=== PATIENT | female | born 1950 | race Two or more races ===

== ENCOUNTER 2025-05-29 10:46 | Inpatient (IN) | payer MEDICARE, MEDICAID ==
[~2025-05-29] VITALS: Ht 157.5 cm; Wt 105.7 kg
[2025-05-29] MEDS ORDERED: FUROSEMIDE 40 MG/4 ML VIAL ONE (11:12)
[2025-05-29 11:22] LABS: PLATELET COUNT (AUTO) 338 K/uL (150-450); RED BLOOD CELL COUNT(AUTO) 4.13 MIL/uL (4.0-5.2); RED CELL DISTRIBUTION WIDTH 22.3 % (11.5-15.0); WHITE BLOOD COUNT (AUTO) 5.5 K/uL (4.3-11.0)
[2025-05-29] MEDS: FUROSEMIDE 40 MG/4 ML VIAL IV ONE (11:29)
[2025-05-29 11:31] LABS: CALCIUM, SERUM 9.1 mg/dL (8.5-10.1); CREATININE 1.0 mg/dL (0.6-1.3); SODIUM SERUM 140 mmol/L (136-145); UREA NITROGEN, BLOOD 19 mg/dL (7-18)
[2025-05-29 11:44] LABS: NT-PRO BNP 81 pg/mL (0-125)
[2025-05-29] MEDS ORDERED: EMPA10TA PO (13:23)
[2025-05-29] MEDS ORDERED: FURO40TA5 PO (13:23)
[2025-05-29] MEDS ORDERED: FOLI0.4T6 PO (13:23)
[2025-05-29] MEDS ORDERED: OXYC-133 PO (13:23)
[2025-05-29] MEDS ORDERED: CEPH-570 PO (13:23)
[2025-05-29] MEDS ORDERED: RIBO25TA PO (13:23)
[2025-05-29] MEDS ORDERED: ALPR2TAB7 PO (13:23)
[2025-05-29] MEDS ORDERED: POTA-88 PO (13:23)
[2025-05-29] MEDS ORDERED: CYAN100T44 PO (13:23)
[2025-05-29] MEDS ORDERED: ACETAMINOPHEN 325 MG TABLET PO PRN (13:30)
[2025-05-29] MEDS ORDERED: Z GUARD REMEDY 4 OZ OINT TP PRN (13:30)
[2025-05-29] MEDS ORDERED: ONDANSETRON HCL/PF 4 MG/2 ML VIAL IVP PRN (13:30)
[2025-05-29] MEDS ORDERED: MAG HYDROX/AL HYDROX/SIMETH 30 ML UDC PO PRN (13:30)
[2025-05-29] MEDS: ENOXAPARIN SODIUM 40 MG/0.4 ML DISP.SYRIN SQ SCH (13:30)
[2025-05-29] MEDS ORDERED: MAGNESIUM HYDROXIDE 30 ML UDC PO PRN (13:30)
[2025-05-29 15:53] VITALS: BP 130/72; TEMP 97.7; O2SAT 97
[2025-05-29 16:00] VITALS: BP 130/72; TEMP 97.7; O2SAT 97
[2025-05-29] MEDS ORDERED: FUROSEMIDE 20 MG/2 ML VIAL IV SCH (17:00)
[2025-05-29] MEDS: FUROSEMIDE 20 MG/2 ML VIAL IV SCH (17:38)
[2025-05-29 20:00] VITALS: BP 133/81; TEMP 97.7; O2SAT 98
[2025-05-30] VITALS: BP 96/73; TEMP 98.2; O2SAT 97
[2025-05-30 04:00] VITALS: BP 130/68; TEMP 98.2; O2SAT 97
[2025-05-30 06:47] LABS: PLATELET COUNT (AUTO) 332 K/uL (150-450); RED BLOOD CELL COUNT(AUTO) 4.07 MIL/uL (4.0-5.2); RED CELL DISTRIBUTION WIDTH 21.7 % (11.5-15.0); WHITE BLOOD COUNT (AUTO) 5.7 K/uL (4.3-11.0)
[2025-05-30 07:00] LABS: ASPARTATE AMINOTRANSFERASE 21.0 U/L (15-37); CALCIUM, SERUM 8.7 mg/dL (8.5-10.1); CREATININE 0.7 mg/dL (0.6-1.3); LDL 66.0 mg/dL (0-99); PHOSPHORUS 4.4 mg/dL (2.5-4.9); SODIUM SERUM 142.0 mmol/L (136-145); TOTAL PROTEIN, SERUM 7.8 g/dL (6.4-8.2); UREA NITROGEN, BLOOD 17.0 mg/dL (7-18)
[2025-05-30 08:00] VITALS: BP 126/75; TEMP 97.9; O2SAT 96
[2025-05-30] MEDS: PANTOPRAZOLE 40 MG TABLET.DR PO SCH (09:21)
[2025-05-30] MEDS: FOLIC ACID 1 MG TABLET PO SCH (09:21)
[2025-05-30] MEDS: ALPRAZOLAM 1 MG TABLET PO PRN (09:22)
[2025-05-30] MEDS: EMPAGLIFLOZIN 10 MG TABLET PO SCH (10:28)
[2025-05-30] MEDS ORDERED: HYDROCODONE/APAP 5/325MG TABLET PO PRN (10:30)
[2025-05-30 12:00] VITALS: BP 107/75; TEMP 97.7; O2SAT 95
[2025-05-30 16:00] VITALS: BP 114/85; TEMP 98.1; O2SAT 99
[2025-05-30 20:00] VITALS: BP 105/74; TEMP 98.1; O2SAT 97
[2025-05-31] VITALS: BP 118/83; TEMP 97.2; O2SAT 96
[2025-05-31 04:00] VITALS: BP 118/92; TEMP 96.8; O2SAT 99
[2025-05-31 08:00] VITALS: BP 118/86; TEMP 97.6; O2SAT 94
[2025-05-31 08:12] LABS: ASPARTATE AMINOTRANSFERASE 29.0 U/L (15-37); CALCIUM, SERUM 8.7 mg/dL (8.5-10.1); CREATININE 0.7 mg/dL (0.6-1.3); SODIUM SERUM 137.0 mmol/L (136-145); TOTAL PROTEIN, SERUM 8.4 g/dL (6.4-8.2); UREA NITROGEN, BLOOD 18.0 mg/dL (7-18)
[2025-05-31] MEDS: FUROSEMIDE 40 MG TABLET PO SCH (08:27)
[2025-05-31 12:00] VITALS: BP 117/89; TEMP 97.6; O2SAT 93
[2025-05-31 16:00] VITALS: BP 147/96; TEMP 99.3; O2SAT 95
[2025-05-31 20:00] VITALS: BP 128/90; TEMP 98.2; O2SAT 97
[2025-06-01] VITALS: BP 138/98; TEMP 98.4; O2SAT 96
[2025-06-01 04:00] VITALS: BP 137/77; TEMP 98.2; O2SAT 97
[2025-06-01 08:00] VITALS: BP 122/72; TEMP 97.7; O2SAT 96
[2025-06-01 12:00] VITALS: BP 138/79; TEMP 98.2; O2SAT 96
[2025-06-01] MEDS ORDERED: CLOTRIMAZOLE 1% 15 GM TUBE TP SCH (17:00)
== END 2025-06-01 14:15 | disposition home health service (06) | DRG 291 ==
LOC: ER 10:53 → TELE1 13:11
DX: I11.0 Hypertensive heart disease with heart failure (principal); I50.33 Acute on chronic diastolic (congestive) heart failure; Z68.42 Body mass index [BMI] 45.0-49.9, adult; L03.116 Cellulitis of left lower limb; Z88.0 Allergy status to penicillin; E11.9 Type 2 diabetes mellitus without complications; I87.8 Other specified disorders of veins; I87.2 Venous insufficiency (chronic) (peripheral); F41.9 Anxiety disorder, unspecified; E66.01 Morbid (severe) obesity due to excess calories; K83.8 Other specified diseases of biliary tract; I87.309 Chronic venous hypertension (idiopathic) without complications of unspecified lower extremity; Z79.84 Long term (current) use of oral hypoglycemic drugs; Z79.899 Other long term (current) drug therapy
CPT/HCPCS: 36415; 71045-TC; 76700-TC; 80048-TC; 80061-TC; 80076-TC; 83690-TC; 83735-TC; 83880; 84100-TC; 84484-TC; 85025-TC; 93307-TC; 93970-TC; 97112-TC; 97116-TC; 97530-TC; G0378; J1650; J1938